=== PATIENT | female | born 1965 | race Caucasian/White ===

== ENCOUNTER → 2017-06-03 | Outpatient (CLI) | payer BC ==
--- NOTE | 2017-06-03 14:01 | KCIC ---
Examination: MRI of the left knee without contrast HISTORY: History of left knee pain, unable to bear weight, progressive left knee pain COMPARISON: Multiplanar, multisequence MR imaging of the left knee was performed without contrast. Findings: The anterior cruciate ligament, posterior cruciate ligament are intact. There is mild increased signal identified in the posterior horn of the medial meniscus particularly in the undersurface fibers of the posterior root of the medial meniscus, best visualized on series 8 image #40 probably a tear. There is mild increased signal identified in the medial meniscus likely secondary to degeneration. The lateral meniscus is intact. The extensor mechanism is intact. There is mild tendinosis of the quadriceps tendon. The medial collateral ligament is intact. The lateral collateral ligamentous complex including the fibular collateral ligament, biceps femoris tendon, popliteus tendon appear intact. Medial retinaculum, lateral retinaculum appear intact. There is deep fissuring of cartilage identified in the patellofemoral compartment. There is subtle fraying of cartilage identified in the medial and lateral compartments. Moderate knee joint effusion. There is a small popliteal cyst identified. Mild joint space loss identified in the medial, lateral, patellofemoral compartments. No acute fracture identified. IMPRESSION: 1. Blunting of the undersurface of the posterior root of the medial meniscus probably a tear. 2. Moderate knee joint effusion. 3. Mild tricompartmental degenerative changes. Grade II chondromalacia patellofemoral compartment. 4. Small popliteal cyst. Electronically signed by: Kaiser Ng MD (06/03/2017 1:58 PM) [id number]
== END | disposition home or self-care (01) ==
LOC: KCIC MRI 12:43
PROVIDERS: ATTEND Nurse Practitioner
DX: M94.262 Chondromalacia, left knee (principal); M25.462 Effusion, left knee; M71.22 Synovial cyst of popliteal space [Baker], left knee
CPT/HCPCS: 73721